=== PATIENT | female | born 1985 | race African-American/Black ===

== ENCOUNTER 2021-08-09 17:59 | Emergency (ER) | payer MEDICAID ==
[~2021-08-09] VITALS: Ht 162.6 cm; Wt 76.0 kg
[2021-08-09 19:26] LABS: BASOPHILS % 0.5 % (0.0-2.0); EOSINOPHILS % 0.4 % (0.0-5.0); HEMOGLOBIN. 13.6 g/dL (12.0-16.0); MEAN CORPUSCULAR VOLUME 87.7 fL (81.0-99.0); MEAN PLATELET VOLUME 8.6 fl (7.4-10.4); MONOCYTES % 7.8 % (2.0-8.0); NEUTROPHILS % 63.3 % (40.0-76.0); PLATELET 216 x1000/uL (130-400); RED BLOOD CELL COUNT 4.68 mill/uL (4.2-5.4)
[2021-08-09 19:35] LABS: CHLORIDE 106 mEq/L (98-107)
[2021-08-09 19:37] LABS: HCG SCREEN NEGATIVE
[2021-08-09] MEDS ORDERED: BENZ-16 MT (21:11)
[2021-08-09 21:39] VITALS: BP 129/80
== END 2021-08-09 21:40 | disposition home or self-care (01) ==
LOC: ER 17:59
DX: R05.9 Cough, unspecified (principal); R06.02 Shortness of breath; Z20.822 Contact with and (suspected) exposure to COVID-19
CPT/HCPCS: 36415; 71045; 80053; 84484; 84703; 85025; 87426; 99284